=== PATIENT | female | born 1965 | race Caucasian/White ===

== ENCOUNTER 2021-03-26 08:48 | Outpatient (REF) | payer OTHER, SELFPAY ==
[2021-03-26 09:31] LABS: MANUAL DIFF FLAG NO
[2021-03-26 09:40] LABS: Basophils Absolute Auto 0.1 X10*3/uL (0.0-0.2); Basophils Percent Auto 0.8 % (0-2); Eosinophils Absolute Auto 0.4 X10*3/uL (0.0-0.4); Hematocrit 46.7 % (37-47); Hemoglobin 15.4 g/dl (12.0-16.0); Imm Gran Abs Auto 0.03 X10*3/uL (0.00-0.03); Imm Gran Pct Auto 0.3 % (0.0-0.4); Lymphocytes Absolute Auto 2.4 X10*3/uL (1.2-4.9); Lymphocytes Percent Auto 27.3 % (20-40); Mean Corpuscular Hemoglobin 30.9 pg (27.0-33.0); Mean Corpuscular Volume 93.8 fL (80-98); Mean Platelet Volume 10.6 fL (9.4-12.3); Monocytes Absolute Auto 0.7 X10*3/uL (0.1-1.2); Monocytes Percent Auto 8.2 % (2-11); Neutrophils Absolute Auto 5.2 X10*3/uL (2.0-8.3); Neutrophils Percent Auto 59.4 % (45-73); Platelet Count 229 X10*3/uL (160-400); Red Blood Count 4.98 X10*6/uL (4.20-5.50); Red Cell Distribution Width 12.8 % (11.0-16.0); White Blood Count 8.8 X10*3/uL (4.8-10.8)
[2021-03-26 09:56] LABS: Alanine Aminotransferase 11 U/L (0-31); Alkaline Phosphatase 94 U/L (39-117); Anion Gap 12 (12-20); Aspartate Amino Transferase 17 U/L (5-31); Bilirubin Direct 0.3 mg/dL (0.0-0.5); Bilirubin Total 0.9 mg/dL (0.0-1.0); Blood Urea Nitrogen 19 mg/dL (9-16); Calcium 8.7 mg/dL (8.4-10.2); Carbon Dioxide 26 mmol/L (22-29); Chloride 106 mmol/L (96-108); Estimated Glomerular Filt Rate > 60; Glucose Random 101 mg/dL (60-115); Sodium 140 mmol/L (135-145); Total Protein 6.7 g/dL (6.5-8.0)
[2021-03-26 10:44] LABS: Erythrocyte Sedimentation Rate 7 MM/HR (0-20)
[2021-03-27 09:04] LABS: Syphilis Screen Nonreactive (Nonreactive)
[2021-03-27 15:01] LABS: IgA 317 mg/dL (47-310); IgG 804 mg/dL (600-1640); IgM 144 mg/dL (50-300)
[2021-03-29 12:12] LABS: Cardiolipin IgG Ab <14 GPL; Cardiolipin IgM Ab <12 MPL
[2021-03-29 23:06] LABS: Anti Nuclear Antibody Screen POSITIVE (NEGATIVE)
[2021-04-04 23:31] LABS: JCV Antibody POSITIVE; JCV Index Value 2.86
== END 2021-03-26 08:49 | disposition home or self-care (01) ==
LOC: HO.LAB 08:48
PROVIDERS: Psychiatry & Neurology Neurology; PCP Internal Medicine; Visit Provider Internal Medicine
DX: G35 Multiple sclerosis (principal)
CPT/HCPCS: 36415; 80048; 80076; 82784; 85025; 85652; 86038; 86039; 86147; 86334; 86711; 86780

== ENCOUNTER 2021-03-29 11:12 | Outpatient (REF) | payer OTHER, SELFPAY ==
[2021-03-29 14:27] LABS: MANUAL DIFF FLAG NO
[2021-03-29 14:30] LABS: Basophils Absolute Auto 0.1 X10*3/uL (0.0-0.2); Basophils Percent Auto 0.9 % (0-2); Eosinophils Absolute Auto 0.3 X10*3/uL (0.0-0.4); Hemoglobin 15.4 g/dl (12.0-16.0); Imm Gran Abs Auto 0.02 X10*3/uL (0.00-0.03); Imm Gran Pct Auto 0.2 % (0.0-0.4); Lymphocytes Absolute Auto 2.5 X10*3/uL (1.2-4.9); Mean Corpuscular HGB Conc 33.5 g/dl (31.0-35.0); Mean Corpuscular Hemoglobin 31.4 pg (27.0-33.0); Mean Corpuscular Volume 93.7 fL (80-98); Mean Platelet Volume 10.7 fL (9.4-12.3); Monocytes Absolute Auto 0.8 X10*3/uL (0.1-1.2); Monocytes Percent Auto 8.7 % (2-11); Neutrophils Absolute Auto 5.9 X10*3/uL (2.0-8.3); Neutrophils Percent Auto 61.2 % (45-73); Platelet Count 257 X10*3/uL (160-400); Red Blood Count 4.91 X10*6/uL (4.20-5.50); Red Cell Distribution Width 12.8 % (11.0-16.0); White Blood Count 9.6 X10*3/uL (4.8-10.8)
[2021-03-29 15:11] LABS: Alanine Aminotransferase 13 U/L (0-31); Albumin Level 4.6 g/dL (3.5-5.0); Alkaline Phosphatase 102 U/L (39-117); Anion Gap 14 (12-20); Aspartate Amino Transferase 20 U/L (5-31); Bilirubin Direct 0.5 mg/dL (0.0-0.5); Bilirubin Total 1.6 mg/dL (0.0-1.0); Blood Urea Nitrogen 23 mg/dL (9-16); Calcium 9.7 mg/dL (8.4-10.2); Carbon Dioxide 26 mmol/L (22-29); Chloride 104 mmol/L (96-108); Estimated Glomerular Filt Rate 54; Glucose Random 100 mg/dL (60-115); Potassium 4.3 mmol/L (3.3-5.1); Sodium 140 mmol/L (135-145); Total Protein 7.4 g/dL (6.5-8.0)
[2021-03-29 15:13] LABS: Erythrocyte Sedimentation Rate 14 MM/HR (0-20)
[2021-03-29 15:43] LABS: Syphilis Screen Nonreactive (Nonreactive)
[2021-03-30 08:21] LABS: Lyme Abs Screen <0.90 index
[2021-04-01 15:11] LABS: IgA 354 mg/dL (47-310); IgG 890 mg/dL (600-1640); IgM 154 mg/dL (50-300)
[2021-04-02 11:16] LABS: Anti Nuclear Antibody Screen POSITIVE (NEGATIVE)
[2021-04-04 17:02] LABS: Cardiolipin IgG Ab <14 GPL; Cardiolipin IgM Ab 12 MPL
[2021-04-04 23:31] LABS: JCV Antibody POSITIVE; JCV Index Value 2.61
== END 2021-03-29 11:13 | disposition home or self-care (01) ==
LOC: HO.WFDLDS 11:12
PROVIDERS: Visit Provider Psychiatry & Neurology Neurology
DX: Z13.89 Encounter for screening for other disorder (principal)
CPT/HCPCS: 36415; 80048; 80076; 82784; 85025; 85652; 86038; 86039; 86147; 86334; 86617; 86618; 86711; 86780

== ENCOUNTER 2021-04-03 17:59 | Outpatient (REF) | payer OTHER, SELFPAY ==
--- NOTE | ~2021-04-03 | MR_ITS ---
EXAMINATION: MR BRAIN WITHOUT AND WITH CONTRAST CLINICAL INFORMATION: Multiple sclerosis. Self-reported decreased vision and right-sided arm and leg weakness. Self-reported history of prior stroke. COMPARISON: None TECHNIQUE: Multiplanar, multisequence MRI of the brain was obtained before and after the intravenous administration of 10 mL Gadavist. Demyelinating protocol sequences are obtained. FINDINGS: Supratentorial brain: Greater than 15 supratentorial prominently periventricular and scattered juxtacortical nonenhancing T2 hyperintensities are present with multiple periventricular lesions noted in a perivenular configuration with associated cystic encephalomalacia (T1 dark spots) ranging in size up to 1.4 cm in maximum radial extent. Infratentorial brain: A single nonenhancing T2 hyperintensity measuring 7 mm diameter is present in the middle left cerebellar peduncle. Additionally, cystic encephalomalacia suspicious for chronic ischemic changes is noted in the parasagittal left posterior ventral chandrakant and within the parasagittal right posterior ventral chandrakant. These findings are suspicious for chronic lacunar infarcts. No abnormal enhancement the brain parenchyma is visualized. No intracranial hemorrhage, tumors or acute appearing infarcts are visualized. Moderate diffuse commensurate prominence of ventricles and sulci is noted. Grossly normal flow-related signal intensity is identified in the major intracranial vessels and dural sinuses. A 4 mm focus of intrinsic high T1-weighted signal intensity is present in the right lentiform nucleus and may represent an area of dystrophic mineralization. The craniocervical junction and cerebellar tonsils are normal in configuration. No suspicious marrow abnormalities are identified. The orbits and globes are normal in appearance. Within the visualized paranasal sinuses, mastoid air cells and middle ear cavities, no significant mucosal thickening or retained secretions are noted. MR/MR head/brain wo/w con IMPRESSION: 1. Findings suspicious for demyelinating disease. Greater than 15 supratentorial nonenhancing periventricular and perivenular lesions in addition to a single 7 mm left middle cerebellar peduncle nonenhancing lesion. Several supratentorial lesions are associated with cystic encephalomalacia (T1 dark spots). The configuration and location of these lesions is strongly suspicious for demyelinating disease. 2. Chronic lacunar infarcts of the left and right ventral chandrakant. 3. No evidence of enhancing lesions or actively demyelinating lesions. 4. Mild-moderate diffuse parenchymal volume loss the brain.
== END 2021-04-03 18:00 | disposition home or self-care (01) ==
LOC: HO.MRI 17:59
PROVIDERS: Visit Provider Psychiatry & Neurology Neurology
DX: G35 Multiple sclerosis (principal)
CPT/HCPCS: 70553; A9585